=== PATIENT | female | born 1965 | race Caucasian/White ===

== ENCOUNTER 2023-12-11 22:14 | Emergency (ER) | payer SELFPAY | END 2023-12-12 04:48 | disposition short-term general hospital (02) | LOC: CSHERS 22:14 | DX: S09.90XA Unspecified injury of head, initial encounter (principal); I95.9 Hypotension, unspecified; R55 Syncope and collapse; J45.909 Unspecified asthma, uncomplicated; X58.XXXA Exposure to other specified factors, initial encounter; Z79.899 Other long term (current) drug therapy; Z55.6 Problems related to health literacy | CPT/HCPCS: 36416; 70450; 72125; 80053; 80306; 80307; 81001; 83605; 83735; 84443; 84484; 85025; 93005; 96360; 96361 ==